=== PATIENT | female | born 1965 | race Caucasian/White ===

== ENCOUNTER 2017-05-19 08:06 | Day surgery (SDC) | payer OTHER ==
[~2017-05-19] VITALS: Ht 162.6 cm; Wt 63.5 kg
[~2017-05-19 08:06] MED LIST: ACET-787 PO; BEN50 PO; IBUP-974 PO; NAPR220T29 PO; PHEN60TA43 PO; PRED1TAB2 PO; PRON INH; THYR60TA7 PO; [UNRECOGNIZED DRUG - CODE] PO
== END 2017-05-19 09:50 | disposition home or self-care (01) ==
LOC: MMU 08:06 → MDS 08:06
PROVIDERS: ATTEND Surgery
DX: N60.01 Solitary cyst of right breast (principal); N60.02 Solitary cyst of left breast; J45.909 Unspecified asthma, uncomplicated; E03.9 Hypothyroidism, unspecified; G43.909 Migraine, unspecified, not intractable, without status migrainosus; Z88.2 Allergy status to sulfonamides; Z88.8 Allergy status to other drugs, medicaments and biological substances; Z91.02 Food additives allergy status; Z79.899 Other long term (current) drug therapy
CPT/HCPCS: 19083; 76942; 88104; 88305